=== PATIENT | female | born 1990 | race African-American/Black ===

== ENCOUNTER 2024-08-24 21:34 | Emergency (ER) | payer BC ==
[2024-08-24] MEDS ORDERED: Ketorolac Tromethamine 30 MG (1 mL) VIAL ONE (23:34)
[2024-08-24 23:50] LABS: #Basophils 0.07 10x3/uL (0.0-0.2); %Eosinophils 2.6 % (0.0-10.0); %Lymphocytes 34.5 % (21.0-51.0); %Monocytes 7.4 % (0.0-10.0); %Neutrophils 54.2 % (42.0-75.0); Hemoglobin 11.1 g/dL (12.0-16.0); Mean Corpuscular HGB CONC 32.6 g/dL (32.0-36.0); Mean Corpuscular Hemoglobin 27.8 pg (27.0-31.0); Mean Platelet Volume 9.9 fL (7.4-10.4); Platelet Count 227 10x3/uL (130-400); RBC Distribution Width 13.3 % (11.5-14.5)
[2024-08-25 00:04] LABS: Calc. Creatinine Clearance 0 mL/min (70-130); Estimated GFR 107
[2024-08-25 00:05] LABS: ALT (SGPT) 16 U/L (8-55); AST (SGOT) 19 U/L (5-34); Albumin 3.6 g/dL (3.5-5.0); Alkaline Phosphatase 67 U/L (40-110); Anion Gap 12 mmol/L (10-20); BUN (Urea Nitrogen) 12 mg/dL (7.0-18.7); Bilirubin, Total 0.2 mg/dL (0.2-1.2); Calcium 9.2 mg/dL (7.8-10.44); Carbon Dioxide 21 mmol/L (22-29); Chloride 109 mmol/L (98-107); Globulin 3.7 g/dL (2.4-3.5); Glucose 105 mg/dL (70-105); Lipase 13 U/L (8-78); Magnesium 1.8 mg/dL (1.6-2.6); Protein, Total 7.3 g/dL (6.0-8.3); Sodium 138 mmol/L (136-145)
[2024-08-25 00:14] LABS: Troponin I Less than 0.010 ng/mL (< 0.028)
== END 2024-08-25 00:36 | disposition home or self-care (01) ==
LOC: ERS 21:34
DX: M94.0 Chondrocostal junction syndrome [Tietze] (principal); N80.9 Endometriosis, unspecified; Z55.0 Illiteracy and low-level literacy
CPT/HCPCS: 36415; 71045; 80053; 83690; 83735; 83880; 84484; 85025; 93005; 96372; J1885

== ENCOUNTER 2025-05-18 19:07 | Emergency (ER) | payer BC, MEDICAID, OTHER | END 2025-05-18 19:48 | disposition left against medical advice (07) | LOC: ERS 19:07 | DX: Z53.21 Procedure and treatment not carried out due to patient leaving prior to being seen by health care provider (principal) ==